=== PATIENT | male | born 1965 | race Caucasian/White ===

== ENCOUNTER 2022-10-25 19:30 | Outpatient (CLI) | payer BC | END 2022-10-25 19:31 | disposition home or self-care (01) | LOC: SLEEPLAB 19:30 | PROVIDERS: ATTEND Student in an Organized Health Care Education/Training Program | DX: G47.33 Obstructive sleep apnea (adult) (pediatric) (principal); R06.83 Snoring; F32.9 Major depressive disorder, single episode, unspecified; G47.00 Insomnia, unspecified; G47.10 Hypersomnia, unspecified; G47.31 Primary central sleep apnea | CPT/HCPCS: 95811 ==

== ENCOUNTER 2024-05-05 15:37 | Outpatient (CLI) | payer BC | END 2024-05-05 15:38 | disposition home or self-care (01) | LOC: CT 15:37 | PROVIDERS: ATTEND Student in an Organized Health Care Education/Training Program | DX: H53.8 Other visual disturbances (principal); R51.9 Headache, unspecified; M77.9 Enthesopathy, unspecified | CPT/HCPCS: 70450 ==

== ENCOUNTER 2024-05-21 13:56 | Outpatient (CLI) | payer BC | END 2024-05-21 13:57 | disposition home or self-care (01) | LOC: SCSMRI 13:56 | PROVIDERS: ATTEND Student in an Organized Health Care Education/Training Program | DX: H53.2 Diplopia (principal); H57.11 Ocular pain, right eye; I67.89 Other cerebrovascular disease | CPT/HCPCS: 70543; 70553 ==